=== PATIENT | female | born 1960 | race African-American/Black ===

== ENCOUNTER 2019-05-13 14:17 | Outpatient (CLI) | payer MEDICARE ==
--- NOTE | 2019-05-13 16:46 | BD ---
DEXA BONE DENSITY STUDY: HISTORY: Age-related osteoporosis. Menopausal state. FINDINGS: LUMBAR SPINE BMD (g/cm2) T-SCORE L1 0.776 -1.9 L2 0.904 -1.1 L3 0.992 -0.8 L4 0.941 -1.1 TOTAL 0.908 -1.3 Evidence for osteopenia with increased risk for fracture. BMD (g/cm2) T-SCORE RIGHT FEMORAL NECK 0.662 -1.7 TOTAL 0.860 -0.7 Evidence for osteopenia with increased risk for fracture. FRAX score for major osteoporotic fracture is 4.9% and hip fracture is 0.8%. POS: RRE
--- NOTE | 2019-05-21 16:22 | MMO ---
Bilateral MAMMO Bilat Screen [facility]. CLINICAL HISTORY: Patient is 58 years old and is seen for screening. The patient has no family history of breast cancer. The patient has no personal history of cancer. VIEWS: The views performed were: bilateral craniocaudal with tomosynthesis and bilateral mediolateral oblique with tomosynthesis. FILMS COMPARED: The present examination has been compared to a prior imaging study performed at [facility] on 03/14/2017. MAMMOGRAM FINDINGS: There are scattered fibroglandular densities. There are no suspicious masses, suspicious calcifications, or new areas of architectural distortion. IMPRESSION: THERE IS NO MAMMOGRAPHIC EVIDENCE OF MALIGNANCY. A ROUTINE FOLLOW-UP MAMMOGRAM IN 1 YEAR IS RECOMMENDED. THE RESULTS OF THIS EXAM WERE SENT TO THE PATIENT. ACR BI-RADS Category 1 - Negative MAMMOGRAPHY NOTE: 1. A negative mammogram report should not delay a biopsy if a dominant of clinically suspicious mass is present. 2. Approximately 10% to 15% of breast cancers are not detected by mammography. 3. Adenosis and dense breasts may obscure an underlying neoplasm. Reported by: LIAM MORA MD Electonically Signed: [id number]
== END 2019-05-13 14:18 | disposition home or self-care (01) ==
LOC: BICMAMMO 14:17
PROVIDERS: ATTEND Family Medicine
DX: Z12.31 Encounter for screening mammogram for malignant neoplasm of breast (principal); M81.0 Age-related osteoporosis without current pathological fracture
CPT/HCPCS: 77063; 77067; 77080